=== PATIENT | female | born 1975 | race Caucasian/White ===

== ENCOUNTER 2017-09-23 21:04 | Emergency (ER) | payer MEDICAID ==
[2015-11-28 02:15] VITALS: BMI 32.6
[~2017-09-23 21:04] MED LIST: CYCLOBENZAPRINE10 MG PO; HYDROCODON-ACE1 EAC9 PO; MEDROL DOSE PACK4 MG PO; MELATONIN 3 MG1 TAB PO; PROZAC40 MG PO; ROBAXIN-750750 MG PO
== END 2017-09-23 23:56 | disposition home or self-care (01) ==
LOC: D.ER 21:04
DX: M54.5 Low back pain (principal); S39.012A Strain of muscle, fascia and tendon of lower back, initial encounter; X58.XXXA Exposure to other specified factors, initial encounter; Y93.89 Activity, other specified; Y92.89 Other specified places as the place of occurrence of the external cause; M51.26 Other intervertebral disc displacement, lumbar region

== ENCOUNTER 2017-10-29 05:12 | Emergency (ER) | payer SELFPAY ==
[2015-11-28 02:15] VITALS: BMI 32.6
[2017-10-29 05:51] LABS: BASOPHILS 0.3 % (0-2); EOSINOPHILS 1.5 % (0-7); HEMATOCRIT 43.4 % (36.0-48.0); IMMATURE GRANULOCYTES 0.4 % (0-5); MCH 30.5 pg (26.0-34.0); MCHC 34.6 g/dL (31.0-37.0); MCV 88.2 fL (80.0-100.0); MEAN PLATELET VOLUME 9.9 fL (7.4-10.4); MONOCYTES 7.1 % (2-11); NEUTROPHILS 64.7 % (40-80); PLATELET COUNT 283 10x3/uL (130-400); RBC 4.92 10x6/uL (4.00-5.40); RDW 12.5 % (11.5-14.5); WBC 10.4 10x3/uL (4.8-10.8)
[2017-10-29 06:10] LABS: ALBUMIN 3.8 g/dL (3.4-5.0); ALKALINE PHOSPHATASE 89 U/L (46-116); ALT (SGPT) 15 U/L (10-68); BILIRUBIN - TOTAL 0.29 mg/dL (0.2-1.3); CALC OSMOLALITY 281 mosm/kg (275-300); CALCIUM 9.2 mg/dL (8.5-10.1); CHLORIDE - SERUM 105 mmol/L (98-107); CREATININE - SERUM 0.9 mg/dL (0.6-1.3); GLUCOSE 114 mg/dL (74-106); POTASSIUM - SERUM 3.5 mmol/L (3.5-5.1); PROTEIN - SERUM 7.8 g/dL (6.4-8.2); SODIUM 141 mmol/L (136-145); UREA NITROGEN 12 mg/dL (7-18); eGFR NON AFRICAN AMERICAN 72 mL/min (90-120)
[2017-10-29 06:21] LABS: CREATINE KINASE 40 UL (21-215)
[2017-10-29 06:25] LABS: TROPONIN-I < 0.017 ng/mL (0.000-0.060)
== END 2017-10-29 07:06 | disposition home or self-care (01) ==
LOC: D.ER 05:12
PROVIDERS: Family Medicine
DX: G43.909 Migraine, unspecified, not intractable, without status migrainosus (principal); R55 Syncope and collapse

== ENCOUNTER → 2019-11-16 08:21 | Outpatient (CLI) | payer BC ==
[2015-11-28 02:15] VITALS: BMI 32.6
== END | disposition home or self-care (01) ==
LOC: D.MRI 08:21
PROVIDERS: ATTEND Family Medicine
DX: M54.5 Low back pain (principal)